=== PATIENT | female | born 1965 | race African-American/Black ===

== ENCOUNTER 2017-08-04 09:25 | Emergency (ER) | payer OTHER ==
[~2017-08-04] VITALS: Ht 160 cm; Wt 90.8 kg
[~2017-08-04 09:25] MED LIST: CITA40TA5 PO; CRESTOR20 MG PO; INDO25CA PO; TRAM50TA PO; TRAZ50TA15 PO; VALA500T PO; VALS80TA3 PO
[2017-08-04] MEDS ORDERED: ONDANSETRON ODT 4 MG TAB.RAPDIS PO ONE (10:00)
[2017-08-04] MEDS ORDERED: IV NORMAL SALINE 1,000ML 1,000 ML IV ONE (10:00)
[2017-08-04] MEDS ORDERED: MORPHINE SULFATE 4 MG/ML DISP.SYRIN. ONE (10:23)
[2017-08-04 10:26] LABS: BASO # 0.1 x10^3/uL (0.0-0.2); BASO % 1 % (0-3); EOS % 0 % (0-3); HEMATOCRIT 45.3 % (36.0-47.0); HEMOGLOBIN 15.4 g/dL (12.0-15.5); LYMPH # 1.1 x10^3/uL (1.0-4.8); LYMPH % 12 % (24-48); MEAN CORPUSCULAR HEMOGLOBIN 31 pg (25-35); MEAN CORPUSCULAR HGB CONC 34 g/dL (31-37); MEAN CORPUSCULAR VOLUME 91 fL (79-100); MONO # 0.8 x10^3/uL (0.0-1.1); MONO % 8 % (0-9); NEUT # 7.4 x10^3uL (1.8-7.7); NEUT % 79 % (31-73); PLATELET COUNT 220 x10^3/uL (140-400); RED BLOOD COUNT 5.01 x10^6/uL (3.50-5.40); RED CELL DISTRIBUTION WIDTH 12.6 % (11.5-14.5); WHITE BLOOD COUNT 9.3 x10^3/uL (4.0-11.0)
[2017-08-04] MEDS ORDERED: MORPHINE SULFATE 4 MG/ML DISP.SYRIN. IV ONE (10:45)
[2017-08-04 11:14] LABS: ALBUMIN 3.5 g/dL (3.4-5.0); ALBUMIN/GLOBULIN RATIO 0.8 (1.0-1.7); CALCIUM 8.6 mg/dL (8.5-10.1); GFR 69.9; MAGNESIUM 1.8 mg/dL (1.8-2.4); POTASSIUM 3.2 mmol/L (3.5-5.1); TOTAL BILIRUBIN 0.6 mg/dL (0.2-1.0); TOTAL PROTEIN 7.7 g/dL (6.4-8.2)
--- NOTE | 2017-08-04 12:45 | PHYS DOC ---
Past History Past Medical History: Depression, Hypertension, Migraines, TIA, Other Past Surgical History: , Other Alcohol Use: None Drug Use: None Adult General Chief Complaint Chief Complaint: ABDOMINAL PAIN HPI HPI Patient is a 52 year old F who presents with bilateral lower abdominal pain and left flank pain that started this morning. She describes her pain as achy and constant. She denies intermittent fluctuation. She has no known exacerbating factors. She does describe associated nausea without vomiting. She has had normal bowel movements and does not feel that she is constipated. She has no other associated symptoms this time. She has no other exacerbating or alleviating factors. Review of Systems Review of Systems Constitutional: Denies fever or chills [] Eyes: Denies change in visual acuity, redness, or eye pain [] HENT: Denies nasal congestion or sore throat [] Respiratory: Denies cough or shortness of breath [] Cardiovascular: No additional information not addressed in HPI [] GI: Negative except history of present illness : Denies dysuria or hematuria [] Musculoskeletal: Denies back pain or joint pain [] Integument: Denies rash or skin lesions [] Neurologic: Denies headache, focal weakness or sensory changes [] Endocrine: Denies polyuria or polydipsia [] All other systems were reviewed and found to be within normal limits, except as documented in this note. Family History Family History No pertinent family medical history reported Current Medications Current Medications Current Medications Medications (Trade) Dose Ordered Sig/[facility] Start Time Stop Time Status Last Admin Dose Admin Morphine Sulfate (Morphine 4mg Syringe) 4 mg STK-MED ONCE 08/04/17 10:23 08/04/17 10:24 DC Ondansetron HCl (Zofran Odt) 4 mg 1X ONCE 08/04/17 10:00 08/04/17 10:25 DC 08/04/17 10:20 4 MG Sodium Chloride 1,000 ml @ 1,000 mls/hr 1X ONCE 08/04/17 10:00 08/04/17 10:59 DC 08/04/17 10:21 1,000 MLS/HR Allergies Allergies Allergies Coded Allergies Type Severity Reaction Last Updated Verified No Known Drug Allergies 12/13/14 No Physical Exam Physical Exam Constitutional: Well developed, well nourished, no acute distress, non-toxic appearance. [] HENT: Normocephalic, atraumatic Eyes: EOMI, conjunctiva normal, no discharge. [] Neck: Normal range of motion, no tenderness, supple, no stridor. [] Cardiovascular:Heart rate regular rhythm, Lungs & Thorax: Bilateral breath sounds clear to auscultation [] Abdomen: Bowel sounds normal, soft, no masses, no pulsatile masses. [] Mild tenderness in the lower abdomen Skin: Warm, dry, no erythema, no rash. [] Back: Mild tenderness in the left flank Extremities: No tenderness, no cyanosis, no clubbing, ROM intact, no edema. [] Neurologic: Alert and oriented X 3, normal motor function, normal sensory function, no focal deficits noted. [] Psychologic: Affect normal, judgement normal, mood normal. [] Current Patient Data Vital Signs Vital Signs Date Time Temp Pulse Resp B/P (MAP) Pulse Ox O2 Delivery O2 Flow Rate FiO2 08/04/17 10:27 18 100 Room Air Lab Results Laboratory Tests Test 08/04/17 10:15 08/04/17 10:50 08/04/17 12:04 08/04/17 12:50 White Blood Count 9.3 x10^3/uL (4.0-11.0) Red Blood Count 5.01 x10^6/uL (3.50-5.40) Hemoglobin 15.4 g/dL (12.0-15.5) Hematocrit 45.3 % (36.0-47.0) Mean Corpuscular Volume 91 fL (79-100) Mean Corpuscular Hemoglobin 31 pg (25-35) Mean Corpuscular Hemoglobin Concent 34 g/dL (31-37) Red Cell Distribution Width 12.6 % (11.5-14.5) Platelet Count 220 x10^3/uL (140-400) Neutrophils (%) (Auto) 79 % (31-73) Lymphocytes (%) (Auto) 12 % (24-48) Monocytes (%) (Auto) 8 % (0-9) Eosinophils (%) (Auto) 0 % (0-3) Basophils (%) (Auto) 1 % (0-3) Neutrophils # (Auto) 7.4 x10^3uL (1.8-7.7) Lymphocytes # (Auto) 1.1 x10^3/uL (1.0-4.8) Monocytes # (Auto) 0.8 x10^3/uL (0.0-1.1) Eosinophils # (Auto) 0.0 x10^3/uL (0.0-0.7) Basophils # (Auto) 0.1 x10^3/uL (0.0-0.2) Sodium Level 140 mmol/L (136-145) Potassium Level 3.2 mmol/L (3.5-5.1) Chloride Level 104 mmol/L (98-107) Carbon Dioxide Level 27 mmol/L (21-32) Anion Gap 9 (6-14) Blood Urea Nitrogen 18 mg/dL (7-20) Creatinine 1.0 mg/dL (0.6-1.0) Estimated GFR (Cockcroft-Gault) 69.9 BUN/Creatinine Ratio 18 (6-20) Glucose Level 114 mg/dL (70-99) Calcium Level 8.6 mg/dL (8.5-10.1) Magnesium Level 1.8 mg/dL (1.8-2.4) Total Bilirubin 0.6 mg/dL (0.2-1.0) Aspartate Amino Transf (AST/SGOT) 14 U/L (15-37) Alanine Aminotransferase (ALT/SGPT) 18 U/L (14-59) Alkaline Phosphatase 93 U/L (46-116) Total Protein 7.7 g/dL (6.4-8.2) Albumin 3.5 g/dL (3.4-5.0) Albumin/Globulin Ratio 0.8 (1.0-1.7) Lipase 90 U/L (73-393) Bedside Urine HCG, Qualitative hcg negative (Negative) Urine Collection Type Unknown Urine Color Yellow Urine Clarity Hazy Urine pH 7.5 Urine Specific Clarinda 1.020 Urine Protein Neg (NEG-TRACE) Urine Glucose (UA) Neg mg/dL (NEG) Urine Ketones (Stick) Neg mg/dL (NEG) Urine Blood Large (NEG) Urine Nitrite Neg (NEG) Urine Bilirubin Neg (NEG) Urine Urobilinogen Dipstick 1 mg/dL (0.2 mg/dL) Urine Leukocyte Esterase Neg (NEG) Urine RBC 11-20 /HPF (0-2) Urine WBC Occ /HPF (0-4) Urine Squamous Epithelial Cells Mod /LPF Urine Bacteria Mod /HPF (0-FEW) Urine Mucus Slight /LPF Urine Test Negative (NEG) Laboratory Tests Test 08/04/17 10:15 08/04/17 10:50 White Blood Count 9.3 x10^3/uL (4.0-11.0) Red Blood Count 5.01 x10^6/uL (3.50-5.40) Hemoglobin 15.4 g/dL (12.0-15.5) Hematocrit 45.3 % (36.0-47.0) Mean Corpuscular Volume 91 fL (79-100) Mean Corpuscular Hemoglobin 31 pg (25-35) Mean Corpuscular Hemoglobin Concent 34 g/dL (31-37) Red Cell Distribution Width 12.6 % (11.5-14.5) Platelet Count 220 x10^3/uL (140-400) Neutrophils (%) (Auto) 79 % (31-73) H Lymphocytes (%) (Auto) 12 % (24-48) L Monocytes (%) (Auto) 8 % (0-9) Eosinophils (%) (Auto) 0 % (0-3) Basophils (%) (Auto) 1 % (0-3) Neutrophils # (Auto) 7.4 x10^3uL (1.8-7.7) Lymphocytes # (Auto) 1.1 x10^3/uL (1.0-4.8) Monocytes # (Auto) 0.8 x10^3/uL (0.0-1.1) Eosinophils # (Auto) 0.0 x10^3/uL (0.0-0.7) Basophils # (Auto) 0.1 x10^3/uL (0.0-0.2) Sodium Level 140 mmol/L (136-145) Potassium Level 3.2 mmol/L (3.5-5.1) L Chloride Level 104 mmol/L (98-107) Carbon Dioxide Level 27 mmol/L (21-32) Anion Gap 9 (6-14) Blood Urea Nitrogen 18 mg/dL (7-20) Creatinine 1.0 mg/dL (0.6-1.0) Estimated GFR (Cockcroft-Gault) 69.9 BUN/Creatinine Ratio 18 (6-20) Glucose Level 114 mg/dL (70-99) H Calcium Level 8.6 mg/dL (8.5-10.1) Magnesium Level 1.8 mg/dL (1.8-2.4) Total Bilirubin 0.6 mg/dL (0.2-1.0) Aspartate Amino Transferase (AST) 14 U/L (15-37) L Alanine Aminotransferase (ALT) 18 U/L (14-59) Alkaline Phosphatase 93 U/L (46-116) Total Protein 7.7 g/dL (6.4-8.2) Albumin 3.5 g/dL (3.4-5.0) Albumin/Globulin Ratio 0.8 (1.0-1.7) L Lipase 90 U/L (73-393) EKG EKG [] Radiology/Procedures Radiology/Procedures Imaging to look for a life-threatening apparently disabling condition was declined. Emma instead opted for watchful management after risks and benefits were reviewed. Course & Med Decision Making Course & Med Decision Making Pertinent Labs and Imaging studies reviewed. (See chart for details) Emma's course in the emergency room was delayed as she was unable to give a urine sample for some time. Dragon Disclaimer Dragon Disclaimer This electronic medical record was generated, in whole or in part, using a voice recognition dictation system. Departure Departure: Impression: Primary Impression: Gastroenteritis Disposition: 01 HOME, SELF-CARE Condition: STABLE Referrals: JAY العلي DO, MPH (PCP) Patient Instructions: Viral Gastroenteritis Additional Instructions: Emma was seen in the emergency department for abdominal pain and nausea. No emergency medical condition was found on history or physical exam. She did have normal labs. Her symptoms are most consistent with a viral infection. She was strongly encouraged to return to the emergency room if she develops new or worsening symptoms. She was also advised follow-up with her primary care doctor as needed for further management. Scripts Ondansetron (ZOFRAN ODT) 4 Mg Tab.rapdis 1 TAB SL Q8HRS, #15 TAB Prov: SHAWN GALLEGOS MD 08/04/17 SHAWN GALLEGOS MD Aug 04, 2017 12:45
[2017-08-04] MEDS: POTASSIUM CHLORIDE 20 MEQ TABLET.ER. PO ONE ×2 (13:00→13:56)
[2017-08-04 13:20] LABS: BACTERIA,URINE MOD /HPF (0-FEW); BILIRUBIN,URINE NEG (NEG); CLARITY,URINE HAZY; COLOR,URINE YELLOW; GLUCOSE,URINE NEG (NEG); NITRITE,URINE NEG (NEG); SQUAMOUS EPITHELIAL CELL,UR MOD /LPF; UROBILINOGEN,URINE 1 mg/dL (0.2 mg/dL); WBC,URINE OCC /HPF (0-4)
[2017-08-04 13:27] LABS: U PREG PATIENT NEGATIVE (NEG)
[2017-08-04] MEDS ORDERED: ONDA4TAB10 SL (13:49)
[2017-08-04 14:02] VITALS: BP 148/98
== END 2017-08-04 14:02 | disposition home or self-care (01) ==
LOC: ER 09:25
DX: K52.9 Noninfective gastroenteritis and colitis, unspecified (principal); F32.9 Major depressive disorder, single episode, unspecified; I10 Essential (primary) hypertension; G43.909 Migraine, unspecified, not intractable, without status migrainosus; Z86.73 Personal history of transient ischemic attack (TIA), and cerebral infarction without residual deficits
CPT/HCPCS: 36415; 80053; 81001; 81025; 83690; 83735; 85025; 87086; 96361; 96374; 99284; J2270; Q0162; J7030

== ENCOUNTER 2017-09-14 12:51 | Emergency (ER) | payer OTHER ==
[~2017-09-14] VITALS: Ht 160 cm; Wt 89.6 kg
[~2017-09-14 12:51] MED LIST changes: +ONDA4TAB10 SL
--- NOTE | 2017-09-14 13:18 | PHYS DOC ---
Past History Past Medical History: Depression, High Cholesterol, Hypertension, Migraines, TIA, Other Past Surgical History: , Other Alcohol Use: Rarely Drug Use: None Adult General Chief Complaint Chief Complaint: FLANK PAIN [facility] HPI 52-year-old female who was recently diagnosed with urinary tract infection presents with a fairly acute onset of left-sided flank pain that radiates into her groin. She's never had a kidney stone before. She states the pain is severe. There is nothing that she is then to make it any better or worse today. She denies any fever chills or sweats. She has not had any nausea. She denies any gross hematuria.[] Review of Systems Review of Systems Constitutional: Denies fever or chills [] Eyes: Denies change in visual acuity, redness, or eye pain [] HENT: Denies nasal congestion or sore throat [] Respiratory: Denies cough or shortness of breath [] Cardiovascular: No additional information not addressed in HPI [] GI: Left flank pain[] : Recent urinary tract infection[] Musculoskeletal: Denies back pain or joint pain [] Integument: Denies rash or skin lesions [] Neurologic: Denies headache, focal weakness or sensory changes [] Endocrine: Denies polyuria or polydipsia [] All other systems were reviewed and found to be within normal limits, except as documented in this note. Allergies Allergies Allergies Coded Allergies Type Severity Reaction Last Updated Verified No Known Drug Allergies 12/13/14 No Physical Exam Physical Exam Constitutional: Well developed, well nourished, moderate distress, non-toxic appearance. [] HENT: Normocephalic, atraumatic, bilateral external ears normal, oropharynx moist, no oral exudates, nose normal. [] Eyes: PERRLA, EOMI, conjunctiva normal, no discharge. [] Neck: Normal range of motion, no tenderness, supple, no stridor. [] Cardiovascular:Heart rate regular rhythm, no murmur [] Lungs & Thorax: Bilateral breath sounds clear to auscultation [] Abdomen: Bowel sounds normal, soft, no tenderness, no masses, no pulsatile masses. [] Skin: Warm, dry, no erythema, no rash. [] Back: No tenderness, no CVA tenderness. [] Extremities: No tenderness, no cyanosis, no clubbing, ROM intact, no edema. [] Neurologic: Alert and oriented X 3, normal motor function, normal sensory function, no focal deficits noted. [] Psychologic: Affect normal, judgement normal, mood normal. [] Current Patient Data Vital Signs Vital Signs Date Time Temp Pulse Resp B/P (MAP) Pulse Ox O2 Delivery O2 Flow Rate FiO2 09/14/17 13:02 98.1 104 18 98 Room Air EKG EKG [] Radiology/Procedures Radiology/Procedures [] Impressions: PATIENT: CHRISTY GANDHI ACCOUNT: [id number] : 1965 LOCATION: ER AGE: 52 SEX: F EXAM STATUS: PRE ER ORD. PHYSICIAN: JANA BILLINGS DO REASON: left flank pain PROCEDURE: CT ABDOMEN PELVIS WO CONTRAST CT of the abdomen and pelvis without contrast, 09/14/2017: HISTORY: Left flank pain Noncontrast scans were obtained with multiplanar reconstructions produced. No intrarenal calculi are identified. The left renal pelvis and left ureter are mildly dilated. There is minimal left perinephric edema. The distal left ureter near the ureterovesical junction is not clearly defined. There is a 4 mm radiopacity along the posterior wall of the collapsed urinary bladder just left of midline most likely representing an obstructing calculus at the level of the left ureterovesical junction. Additional small bilateral lower pelvic calcifications are probably phleboliths. The right renal collecting system and ureter are unremarkable. A tiny subcentimeter low-density lesion in the right lobe of the liver is probably a cyst. The gallbladder is unremarkable. No pancreatic abnormality is seen. The spleen is within normal limits in size. There is mild aortoiliac calcific plaquing without evidence of aneurysm. No abdominal or pelvic adenopathy is seen. The uterus is at the upper limits of normal in size. Several small cysts are noted in the left ovary. The bowel loops are not dilated. No free fluid or free air is evident in the abdomen or pelvis. IMPRESSION: 4 mm obstructing distal left ureteral calculus at the ureterovesical junction. Course & Med Decision Making Course & Med Decision Making Pertinent Labs and Imaging studies reviewed. (See chart for details) [ED course: Evaluation reveals a 52-year-old female with a 4 mm obstructing kidney stone on the left. This is likely the cause of her pain today. I have encouraged her to continue on her antibiotics. I'll provide her with pain medicine and nausea medicine as well as Flomax to take at home. She'll need to follow with the urologist. At this time. She is pain-free.] Dontae Disclaimer Dontae Disclaimer This electronic medical record was generated, in whole or in part, using a voice recognition dictation system. Departure Departure: Impression: Primary Impression: Ureteral calculus, left Disposition: HOME, SELF-CARE Condition: IMPROVED Referrals: GLENDA PEÑA MD (PCP) Patient Instructions: Diet for Kidney Stones, Kidney Stones Additional Instructions: Follow with her primary care physician in the next 2-3 days she will likely need a referral to a urologist. Return to the emergency department immediately with any new or concerning symptoms Scripts Ondansetron (ONDANSETRON ODT) 4 Mg Tab.rapdis 1 TAB PO PRN Q6-8HRS for NAUSEA, #16 TAB Prov: JANA BILLINGS DO 09/14/17 Hydrocodone Bit/Acetaminophen (NORCO 5-325 TABLET) 1 Each Tablet 1-2 TAB PO Q4-6HRS for PAIN, #20 TAB Prov: JANA BILLINGS DO 09/14/17 Tamsulosin Hcl (FLOMAX) 0.4 Mg Cap.er.24h 1 CAP PO DAILY, #30 CAP 11 Refills Prov: JANA BILLINGS DO 09/14/17 JANA BILLINGS DO Sep 14, 2017 13:18
[2017-09-14] MEDS ORDERED: KETOROLAC 30 MG/ML VIAL. IV ONE (13:30)
[2017-09-14] MEDS ORDERED: IV NORMAL SALINE 1,000ML 1,000 ML IV ONE ×2 (13:30→14:30)
[2017-09-14 14:12] LABS: BILIRUBIN,URINE NEG (NEG); CLARITY,URINE CLOUDY; COLOR,URINE ORANGE
--- NOTE | 2017-09-14 14:13 | RAD ---
CT of the abdomen and pelvis without contrast, 09/14/2017: HISTORY: Left flank pain Noncontrast scans were obtained with multiplanar reconstructions produced. No intrarenal calculi are identified. The left renal pelvis and left ureter are mildly dilated. There is minimal left perinephric edema. The distal left ureter near the ureterovesical junction is not clearly defined. There is a 4 mm radiopacity along the posterior wall of the collapsed urinary bladder just left of midline most likely representing an obstructing calculus at the level of the left ureterovesical junction. Additional small bilateral lower pelvic calcifications are probably phleboliths. The right renal collecting system and ureter are unremarkable. A tiny subcentimeter low-density lesion in the right lobe of the liver is probably a cyst. The gallbladder is unremarkable. No pancreatic abnormality is seen. The spleen is within normal limits in size. There is mild aortoiliac calcific plaquing without evidence of aneurysm. No abdominal or pelvic adenopathy is seen. The uterus is at the upper limits of normal in size. Several small cysts are noted in the left ovary. The bowel loops are not dilated. No free fluid or free air is evident in the abdomen or pelvis. IMPRESSION: 4 mm obstructing distal left ureteral calculus at the ureterovesical junction. Electronically signed by: Samir Thorpe MD (09/14/2017 2:09 PM) [facility]
[2017-09-14 14:15] LABS: BACTERIA,URINE MOD /HPF (0-FEW)
[2017-09-14 14:16] LABS: SQUAMOUS EPITHELIAL CELL,UR MANY /LPF
[2017-09-14 14:17] LABS: ALBUMIN 3.6 g/dL (3.4-5.0); ALBUMIN/GLOBULIN RATIO 0.8 (1.0-1.7); CALCIUM 9.1 mg/dL (8.5-10.1); CREATININE 1.1 mg/dL (0.6-1.0); GFR 62.6; POTASSIUM 3.2 mmol/L (3.5-5.1); TOTAL BILIRUBIN 0.9 mg/dL (0.2-1.0); TOTAL PROTEIN 8.2 g/dL (6.4-8.2)
[2017-09-14] MEDS ORDERED: ONDANSETRON PF 4 MG/2 ML VIAL. IV ONE (14:30)
[2017-09-14] MEDS ORDERED: TAMSULOSIN 0.4 MG CAP.ER.24H. PO ONE (14:30)
[2017-09-14] MEDS ORDERED: TAMS0.4C97 PO (14:37)
[2017-09-14] MEDS ORDERED: HYDR-971 PO (14:37)
[2017-09-14] MEDS ORDERED: ONDA4TAB12 PO (14:37)
[2017-09-14 15:32] VITALS: BP 156/90
== END 2017-09-14 16:03 | disposition home or self-care (01) ==
LOC: ER 12:51
DX: N20.1 Calculus of ureter (principal); E78.00 Pure hypercholesterolemia, unspecified; G43.909 Migraine, unspecified, not intractable, without status migrainosus; I10 Essential (primary) hypertension; Z87.440 Personal history of urinary (tract) infections; Z86.73 Personal history of transient ischemic attack (TIA), and cerebral infarction without residual deficits
CPT/HCPCS: 36415; 74176; 80053; 81001; 87086; 96374; 96375; 99285; J1885; J2405; J3010; J7030

== ENCOUNTER → 2017-11-12 | Outpatient (CLI) | payer OTHER ==
[~2017-11-12] MED LIST changes: +HYDR-971 PO; -INDO25CA PO; +INDO25CA5 PO; +ONDA4TAB12 PO; +TAMS0.4C97 PO; +TRAZ-85 PO; -TRAZ50TA15 PO
--- NOTE | 2017-11-13 09:04 | RAD ---
Right periscapular region ultrasound, 2017: HISTORY: Lump The area of clinical concern along the posterior aspect of the right scapula was carefully scanned. The lump appears to correspond to an elongated hypoechoic subcutaneous process measuring 5.9 x 5.8 x 1.1 cm. Its echo pattern is similar to that of the subcutaneous fat. The features are most compatible with a lipoma. No other abnormality is seen. IMPRESSION: Probable subcutaneous lipoma as described above. Clinical surveillance is suggested. If this process enlarges, MR scanning may be useful for further evaluation. Electronically signed by: Samir Thorpe MD (11/13/2017 9:00 AM) [facility]
== END | disposition home or self-care (01) ==
LOC: US 13:58
PROVIDERS: ATTEND Physician Assistant
DX: D17.39 Benign lipomatous neoplasm of skin and subcutaneous tissue of other sites (principal); I10 Essential (primary) hypertension; E78.00 Pure hypercholesterolemia, unspecified; G43.909 Migraine, unspecified, not intractable, without status migrainosus; Z86.73 Personal history of transient ischemic attack (TIA), and cerebral infarction without residual deficits; Z87.440 Personal history of urinary (tract) infections
CPT/HCPCS: 76881

== ENCOUNTER → 2017-12-23 | Day surgery (SDC) | payer OTHER ==
[~2017-12-23] MED LIST changes: +ASPI325T8 PO; +BACL10TA PO; +BUPIVAC MPF-EPI 0.5%-1:200000 30 ML VIAL. ONE; +BUPR-192 PO; +CELE100C PO; +CHOL500016 PO; +FLUT16SP21 NS; +HYDR12.58 PO; +NAPR-514 PO; +NORT10CA PO; +OLOP2.5D EACHEYE; +POTA20TA4 PO; +SUMA100T3 PO; +VALS1TAB8 PO; +VITA1TAB19 PO
[2017-12-23 13:44] VITALS: BP 142/71
--- NOTE | 2017-12-23 13:44 | PDOC4 ---
Operative Report DATE 12/23/2017 Preop Diagnosis Right upper back mass Post-op Diagnosis Same Operation Performed Excision of right upper back mass Surgeon Bandar ANESTHESIA PROPOSED: LOCAL Blood Loss 10 mL IV Fluid None Specimen Right upper back mass Complications None Dictation: Patient is a 52-year-old female who has a subcutaneous mass in the right upper back likely lipoma procedure of excision was explained to the patient detail was benefits were also discussed including bleeding infection. The patient seemed understanding gave both verbal and written consent had procedure performed. Patient was taken to the minor was room placed in the right lateral decubitus positioning her upper back was prepped and draped usual sterile fashion using ChloraPrep half percent Marcaine with epinephrine was used to inject the skin over the mass once this was anesthetized with 10 blade scalpel was used to make an incision this carried down through the subcutaneous tissues electrocautery right hemostasis. Mass was sharply excised with Metzenbaum scissors and sent for pathology wound was then closed in 2 layers a deep layer running 3-0 Vicryl and skin was reapproximated 4 septic or Monocryl Mastisol Steri-Strips 4 x 4's Medipore tape were applied as a dressing. She tolerated procedure well was discharged home in stable condition all sponge instrument needle counts listed as correct SAVANNA GERMAN MD Dec 23, 2017 13:44
--- NOTE | 2017-12-29 10:49 | PATHOLOGY ---
[facility] Accession Number: [id number] . 01 Material submitted: . RIGHT UPPER BACK MASS . 01 Clinical history: . Right upper back mass . 02 Diagnosis: Segment of fibroadipose tissue, right upper back mass: - Lipoma. MBR/12/25/2017 . 02 Comment: There is no evidence of malignancy. . 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 02 Electronically signed: . Presley Zamudio MD, Pathologist NPI- [id number] . 01 Gross description: . The specimen is received in formalin, labeled "Emma Blancas, right upper back mass", is a roughly oval yellow lobulated soft tissue partially covered by a thin meadows-white membrane weighing 38 g and measuring 8.0 x 4.5 x 2.3 cm. The specimen is serially sectioned to show a laws-yellow homogeneous cut surface with no discrete hemorrhage or necrosis. Roofer Assistant tissue is submitted in A1-A3. ([facility]; 12/24/2017) SHS/SHS . 02 Pathologist provided ICD-10: D17.79 . 02 CPT . 565161 Specimen Comment: A courtesy copy of this report has been sent to Specimen Comment: [phone], . Specimen Comment: Report sent to / DR HARRIS Specimen Comment: A duplicate report has been generated due to demographic updates. Performed at: [facility] [address] [facility] [address], [place] [id number] MD Jim Tovar MD Phone: [phone] Performed at: 02 [facility] [address] [place], [place] [id number] MD Presley Zamudio MD Phone: [phone]
== END | disposition home or self-care (01) ==
LOC: SURG 12:35
PROVIDERS: ATTEND Surgery
DX: D17.1 Benign lipomatous neoplasm of skin and subcutaneous tissue of trunk (principal); G43.909 Migraine, unspecified, not intractable, without status migrainosus; I10 Essential (primary) hypertension; E78.00 Pure hypercholesterolemia, unspecified; Z79.82 Long term (current) use of aspirin; Z79.899 Other long term (current) drug therapy; Z98.890 Other specified postprocedural states
CPT/HCPCS: 21931; 88304; J3490; 11406

== ENCOUNTER 2018-07-03 17:17 | Emergency (ER) | payer OTHER ==
[~2018-07-03] VITALS: Ht 160 cm; Wt 94.5 kg
[~2018-07-03 17:17] MED LIST changes: -BUPIVAC MPF-EPI 0.5%-1:200000 30 ML VIAL. ONE; +HYDR-3165 PO; -HYDR-971 PO; +TRAZ-120 PO; -TRAZ-85 PO
--- NOTE | 2018-07-03 17:37 | ED.ADGEN ---
Past History Past Medical History: Depression, High Cholesterol, Hypertension, Migraines, TIA, Other Past Surgical History: , Other Alcohol Use: Rarely Drug Use: None Adult General Chief Complaint Chief Complaint ".. My blood pressure is up today.. the change me to Capoten.. and it s been high all day..." HPI HPI Patient is a 53 year old female who presents with above hx and complaints hypertension. Patient changed to Capoten 25 mg twice a day. Does have history of chronic hypertension elevated cholesterol, depression, low vitamin D levels, migraines, sleep apnea, and renal stones, and UTIs. Patient denies any ill contacts. Patient denies any travel. No history of trauma. No history immunosuppression. Pt. follows with Dr. Paz. No complaints of neuro changes or other sequela currently. Review of Systems Review of Systems Constitutional: Denies fever or chills [] Eyes: Denies change in visual acuity, redness, or eye pain [] HENT: Denies nasal congestion or sore throat [] Respiratory: Denies cough or shortness of breath [] Cardiovascular: No additional information not addressed in HPI [] GI: Denies abdominal pain, nausea, vomiting, bloody stools or diarrhea [] : Denies dysuria or hematuria [] Musculoskeletal: Denies back pain or joint pain [] Integument: Denies rash or skin lesions [] Neurologic: Denies headache, focal weakness or sensory changes [] Endocrine: Denies polyuria or polydipsia [] All other systems were reviewed and found to be within normal limits, except as documented in this note. Family History Family History Noncontributory to presentation Current Medications Current Medications Current Medications Medications (Trade) Dose Ordered Sig/Ash Start Time Stop Time Status Last Admin Dose Admin Acetaminophen (Tylenol) 1,000 mg 1X ONCE 07/03/18 18:15 07/03/18 18:20 DC 07/03/18 18:14 1,000 MG Clonidine HCl (Catapres Tts-2) 1 patch 1X ONCE 07/03/18 18:15 07/03/18 18:16 DC 07/03/18 18:15 1 PATCH Clonidine HCl (Catapres) 0.2 mg 1X ONCE 07/03/18 18:15 07/03/18 18:16 DC 07/03/18 18:14 0.2 MG Lactated Ringer's 1,000 ml @ 100 mls/hr Q10H 07/03/18 18:03 07/03/18 21:44 DC 07/03/18 21:16 100 MLS/HR Allergies Allergies Allergies Coded Allergies Type Severity Reaction Last Updated Verified No Known Drug Allergies 12/13/14 No Physical Exam Physical Exam Constitutional: no acute distress, non-toxic appearance. [] HENT: Normocephalic, atraumatic, bilateral external ears normal, oropharynx moist, no oral exudates, nose normal. [] Eyes: PERRLA, EOMI, conjunctiva normal, no discharge. [] Neck: Normal range of motion, no tenderness, supple, no stridor. [] Cardiovascular:Heart rate regular rhythm, no murmur [, PMI to Lt. ] Lungs & Thorax: Bilateral breath sounds equal apex on auscultation [] Abdomen: Bowel sounds normal, soft, no tenderness, no masses, no pulsatile masses. Moderate obesity. Old surgery scar. Skin: Warm, dry, no erythema, no rash. [] Back: No tenderness, no CVA tenderness. [] Extremities: No tenderness, no cyanosis, no clubbing, ROM intact, no edema. [] DTRs +2 patella and brachial Neurologic: Alert and oriented X 3, normal motor function, normal sensory function, no focal deficits noted. []Patient ambulatory without problems Psychologic: Affect normal, judgement normal, mood normal. [] Current Patient Data Vital Signs Vital Signs Date Time Temp Pulse Resp B/P (MAP) Pulse Ox O2 Delivery O2 Flow Rate FiO2 07/03/18 21:05 83 20 144/73 (96) 99 Room Air 07/03/18 17:20 98.5 Lab Results Laboratory Tests Test 07/03/18 19:25 07/03/18 20:57 White Blood Count 9.5 x10^3/uL (4.0-11.0) Red Blood Count 4.88 x10^6/uL (3.50-5.40) Hemoglobin 14.8 g/dL (12.0-15.5) Hematocrit 44.2 % (36.0-47.0) Mean Corpuscular Volume 91 fL (79-100) Mean Corpuscular Hemoglobin 30 pg (25-35) Mean Corpuscular Hemoglobin Concent 33 g/dL (31-37) Red Cell Distribution Width 13.7 % (11.5-14.5) Platelet Count 218 x10^3/uL (140-400) Neutrophils (%) (Auto) 69 % (31-73) Lymphocytes (%) (Auto) 17 % (24-48) L Monocytes (%) (Auto) 12 % (0-9) H Eosinophils (%) (Auto) 1 % (0-3) Basophils (%) (Auto) 1 % (0-3) Neutrophils # (Auto) 6.6 x10^3uL (1.8-7.7) Lymphocytes # (Auto) 1.6 x10^3/uL (1.0-4.8) Monocytes # (Auto) 1.1 x10^3/uL (0.0-1.1) Eosinophils # (Auto) 0.1 x10^3/uL (0.0-0.7) Basophils # (Auto) 0.1 x10^3/uL (0.0-0.2) Sodium Level 143 mmol/L (136-145) Potassium Level 3.5 mmol/L (3.5-5.1) Chloride Level 106 mmol/L (98-107) Carbon Dioxide Level 29 mmol/L (21-32) Anion Gap 8 (6-14) Blood Urea Nitrogen 15 mg/dL (7-20) Creatinine 0.9 mg/dL (0.6-1.0) Estimated GFR (Cockcroft-Gault) 78.7 Glucose Level 81 mg/dL (70-99) Calcium Level 9.1 mg/dL (8.5-10.1) Magnesium Level 2.0 mg/dL (1.8-2.4) Total Bilirubin 0.3 mg/dL (0.2-1.0) Direct Bilirubin 0.1 mg/dL (0.0-0.2) Aspartate Amino Transferase (AST) 20 U/L (15-37) Alanine Aminotransferase (ALT) 17 U/L (14-59) Alkaline Phosphatase 86 U/L (46-116) Creatine Kinase 416 U/L (26-192) H Troponin I Quantitative < 0.017 ng/mL (0-0.055) Total Protein 7.5 g/dL (6.4-8.2) Albumin 3.3 g/dL (3.4-5.0) L Urine Collection Type Unknown Urine Color Callie Urine Clarity Cloudy Urine pH 7.0 Urine Specific [place] 1.020 Urine Protein Neg (NEG-TRACE) Urine Glucose (UA) Neg mg/dL (NEG) Urine Ketones (Stick) Neg mg/dL (NEG) Urine Blood Neg (NEG) Urine Nitrite Neg (NEG) Urine Bilirubin Neg (NEG) Urine Urobilinogen Dipstick 2 mg/dL (0.2 mg/dL) Urine Leukocyte Esterase Neg (NEG) Urine RBC 0 /HPF (0-2) Urine WBC 0 /HPF (0-4) Urine Squamous Epithelial Cells Few /LPF Urine Bacteria 0 /HPF (0-FEW) EKG EKG My interpretation of EKG shows a sinus rhythm at 88. There is some nonspecific T -wave abnormalities in anterior leads, slightly prolonged QT interval at 400 ms her QTc interval is 488 seconds[] Radiology/Procedures Radiology/Procedures My interpretation of chest x-ray shows[] borderline cardiomegaly. No acute cardiopulmonary findings. No free air in the diaphragm. Course & Med Decision Making Course & Med Decision Making Pertinent Labs and Imaging studies reviewed. (See chart for details). Keep follow-up primary care. Review labs EKG and x-rays with her primary care. Follow -up urine results with primary care. Review the elevated CK finding on her lab here with primary care. Continue take hypertensive meds as previous directed. Wear clonidine patch until earlier follow-up with her primary care. If hypotensive remove patch. Return if any concerns. At discharge no complaints. [] Final Impression Final Impression 1. Accelerated Hypertension- resolved with clonidine / patch. 2. Hz. Recent HTN Med. Changes[] 3. Mild elevation in monocytes-12 4. Elevation of CK= 416 Dragon Disclaimer Dragon Disclaimer This electronic medical record was generated, in whole or in part, using a voice recognition dictation system. Dragon Disclaimer This chart was dictated in whole or in part using Voice Recognition software in a busy, high-work load, and often noisy Emergency Department environment. It may contain unintended and wholly unrecognized errors or omissions. Discharge Summary Visit Information Final Diagnosis Problems Medical Problems: (1) Hypertension Status: Acute Brief Hospital Course Allergies Allergies Coded Allergies Type Severity Reaction Last Updated Verified No Known Drug Allergies 12/13/14 No Vital Signs Vital Signs Date Time Temp Pulse Resp B/P (MAP) Pulse Ox O2 Delivery O2 Flow Rate FiO2 07/03/18 21:05 83 20 144/73 (96) 99 Room Air 07/03/18 17:20 98.5 Lab Results Laboratory Tests Test 07/03/18 19:25 07/03/18 20:57 White Blood Count 9.5 x10^3/uL (4.0-11.0) Red Blood Count 4.88 x10^6/uL (3.50-5.40) Hemoglobin 14.8 g/dL (12.0-15.5) Hematocrit 44.2 % (36.0-47.0) Mean Corpuscular Volume 91 fL (79-100) Mean Corpuscular Hemoglobin 30 pg (25-35) Mean Corpuscular Hemoglobin Concent 33 g/dL (31-37) Red Cell Distribution Width 13.7 % (11.5-14.5) Platelet Count 218 x10^3/uL (140-400) Neutrophils (%) (Auto) 69 % (31-73) Lymphocytes (%) (Auto) 17 % (24-48) Monocytes (%) (Auto) 12 % (0-9) Eosinophils (%) (Auto) 1 % (0-3) Basophils (%) (Auto) 1 % (0-3) Neutrophils # (Auto) 6.6 x10^3uL (1.8-7.7) Lymphocytes # (Auto) 1.6 x10^3/uL (1.0-4.8) Monocytes # (Auto) 1.1 x10^3/uL (0.0-1.1) Eosinophils # (Auto) 0.1 x10^3/uL (0.0-0.7) Basophils # (Auto) 0.1 x10^3/uL (0.0-0.2) Sodium Level 143 mmol/L (136-145) Potassium Level 3.5 mmol/L (3.5-5.1) Chloride Level 106 mmol/L (98-107) Carbon Dioxide Level 29 mmol/L (21-32) Anion Gap 8 (6-14) Blood Urea Nitrogen 15 mg/dL (7-20) Creatinine 0.9 mg/dL (0.6-1.0) Estimated GFR (Cockcroft-Gault) 78.7 Glucose Level 81 mg/dL (70-99) Calcium Level 9.1 mg/dL (8.5-10.1) Magnesium Level 2.0 mg/dL (1.8-2.4) Total Bilirubin 0.3 mg/dL (0.2-1.0) Direct Bilirubin 0.1 mg/dL (0.0-0.2) Aspartate Amino Transf (AST/SGOT) 20 U/L (15-37) Alanine Aminotransferase (ALT/SGPT) 17 U/L (14-59) Alkaline Phosphatase 86 U/L (46-116) Creatine Kinase 416 U/L (26-192) Troponin I Quantitative < 0.017 ng/mL (0-0.055) Total Protein 7.5 g/dL (6.4-8.2) Albumin 3.3 g/dL (3.4-5.0) Urine Collection Type Unknown Urine Color Callie Urine Clarity Cloudy Urine pH 7.0 Urine Specific [place] 1.020 Urine Protein Neg (NEG-TRACE) Urine Glucose (UA) Neg mg/dL (NEG) Urine Ketones (Stick) Neg mg/dL (NEG) Urine Blood Neg (NEG) Urine Nitrite Neg (NEG) Urine Bilirubin Neg (NEG) Urine Urobilinogen Dipstick 2 mg/dL (0.2 mg/dL) Urine Leukocyte Esterase Neg (NEG) Urine RBC 0 /HPF (0-2) Urine WBC 0 /HPF (0-4) Urine Squamous Epithelial Cells Few /LPF Urine Bacteria 0 /HPF (0-FEW) Brief Hospital Course Ms. Blancas is a 53 old female who presented with complaints of accelerated hypertension and changes in her BP meds. Pt. follow up with primary. Wear Clonidine patch until follow up. Discharge Information Condition at Discharge: Improved, Stable Disposition/Orders: D/C to Home Dischare Medications Current Medications Clonidine HCl (Catapres Tts-2) 1 patch 1X ONCE TD Last administered on at 18:15; Admin Dose 1 PATCH; Start 07/03/18 at 18:15; Stop 07/03/18 at 18:16 ; Status DC Clonidine HCl (Catapres) 0.2 mg 1X ONCE PO Last administered on 07/03/18at 18: 14; Admin Dose 0.2 MG; Start 07/03/18 at 18:15; Stop 07/03/18 at 18:16; Status DC Lactated Ringer's 1,000 ml @ 100 mls/hr Q10H IV Last administered on at 21:16; Admin Dose 100 MLS/HR; Start 07/03/18 at 18:03; Stop 07/03/18 at 21: 44; Status DC Acetaminophen (Tylenol) 1,000 mg 1X ONCE PO Last administered on 07/03/18at 18: 14; Admin Dose 1,000 MG; Start 07/03/18 at 18:15; Stop 07/03/18 at 18:20; Status DC Active Scripts Active Reported Trazodone Hcl 50 Mg Tablet 1 Tab PO QHS Tramadol Hcl (Tramadol HCl) 50 Mg Tablet 50 Mg PO PRN Q6HRS PRN Hydrochlorothiazide Tablet (Hydrochlorothiazide) 12.5 Mg Tablet 1 Tab PO DAILY Diovan Hct 160-12.5 Mg Tab (Valsartan/Hydrochlorothiazide) 1 Each Tablet 1 Tab PO DAILY Vitamin D3 (Cholecalciferol (Vitamin D3)) 5,000 Unit Tablet 1 Tab PO DAILY B Complex (Vitamin B Complex) 1 Each Tablet 1 Each PO Imitrex (Sumatriptan Succinate) 100 Mg Tablet 1 Tab PO UD Klor-Con M20 (Potassium Chloride) 20 Meq Tab.er.prt 1 Tab PO DAILY Pataday (Olopatadine Hcl) 2.5 Ml Drops 1 Drop EACHEYE DAILY Nortriptyline Hcl 10 Mg Capsule 1 Cap PO QHS Naproxen 500 Mg Tablet 1 Tab PO BID Fluticasone Propionate Nasal [place] (Fluticasone Propionate) 16 Gm [place].susp 1 Spr NS DAILY Celebrex (Celecoxib) 100 Mg Capsule 1 Cap PO DAILY Bupropion Xl (Bupropion Hcl) 150 Mg Tab.er.24h 1 Tab PO DAILYWBKFT Baclofen 10 Mg Tablet 1.5 Tab PO TID Aspirin 325 Mg Tablet 1 Tab PO DAILY Crestor (Rosuvastatin Calcium) 20 Mg Tablet 20 Mg PO HS Citalopram Hbr (Citalopram Hydrobromide) 40 Mg Tablet 40 Mg PO Diovan (Valsartan) 80 Mg Tablet 160 Mg PO SG BONILLA MD Jul 03, 2018 17:37
[2018-07-03] MEDS ORDERED: IV RINGERS SOLUTION,LACTATED 1,000 ML IV SCH (18:03)
--- NOTE | 2018-07-03 18:07 | EKG ---
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
[2018-07-03] MEDS ORDERED: ACETAMINOPHEN 500 MG TABLET PO ONE (18:15)
[2018-07-03] MEDS ORDERED: cloNIDine HCL 0.1 MG TABLET PO ONE (18:15)
[2018-07-03] MEDS ORDERED: cloNIDine TTS-2 1 PATCH PATCH TD ONE (18:15)
[2018-07-03 19:57] LABS: BASO # 0.1 x10^3/uL (0.0-0.2); BASO % 1 % (0-3); EOS # 0.1 x10^3/uL (0.0-0.7); EOS % 1 % (0-3); HEMATOCRIT 44.2 % (36.0-47.0); HEMOGLOBIN 14.8 g/dL (12.0-15.5); LYMPH # 1.6 x10^3/uL (1.0-4.8); LYMPH % 17 % (24-48); MEAN CORPUSCULAR HEMOGLOBIN 30 pg (25-35); MEAN CORPUSCULAR HGB CONC 33 g/dL (31-37); MEAN CORPUSCULAR VOLUME 91 fL (79-100); MONO # 1.1 x10^3/uL (0.0-1.1); MONO % 12 % (0-9); NEUT # 6.6 x10^3uL (1.8-7.7); NEUT % 69 % (31-73); PLATELET COUNT 218 x10^3/uL (140-400); RED BLOOD COUNT 4.88 x10^6/uL (3.50-5.40); RED CELL DISTRIBUTION WIDTH 13.7 % (11.5-14.5); WHITE BLOOD COUNT 9.5 x10^3/uL (4.0-11.0)
[2018-07-03 20:21] LABS: ALBUMIN 3.3 g/dL (3.4-5.0); CALCIUM 9.1 mg/dL (8.5-10.1); CREATININE 0.9 mg/dL (0.6-1.0); DIRECT BILIRUBIN 0.1 mg/dL (0.0-0.2); GFR 78.7; POTASSIUM 3.5 mmol/L (3.5-5.1); TOTAL BILIRUBIN 0.3 mg/dL (0.2-1.0); TOTAL PROTEIN 7.5 g/dL (6.4-8.2)
[2018-07-03 21:05] VITALS: BP 144/73
[2018-07-03 21:34] LABS: BACTERIA,URINE 0 /HPF (0-FEW); BILIRUBIN,URINE NEG (NEG); CLARITY,URINE CLOUDY; COLOR,URINE AMBER; GLUCOSE,URINE NEG (NEG); NITRITE,URINE NEG (NEG); RBC,URINE 0 /HPF (0-2); SQUAMOUS EPITHELIAL CELL,UR FEW /LPF; UROBILINOGEN,URINE 2 mg/dL (0.2 mg/dL); WBC,URINE 0 /HPF (0-4)
== END 2018-07-03 21:26 | disposition home or self-care (01) ==
LOC: ER 17:17
DX: I10 Essential (primary) hypertension (principal); D72.821 Monocytosis (symptomatic); R74.8 Abnormal levels of other serum enzymes; F32.9 Major depressive disorder, single episode, unspecified; E78.00 Pure hypercholesterolemia, unspecified; G43.909 Migraine, unspecified, not intractable, without status migrainosus; G47.30 Sleep apnea, unspecified; Z86.73 Personal history of transient ischemic attack (TIA), and cerebral infarction without residual deficits; Z87.442 Personal history of urinary calculi; Z87.440 Personal history of urinary (tract) infections
CPT/HCPCS: 36415; 80048; 80076; 81001; 82550; 83735; 84443; 84484; 85025; 93005; 99284; J7120

== ENCOUNTER 2019-05-14 17:57 | Inpatient (IN) | payer OTHER ==
[~2019-05-14] VITALS: Ht 160 cm; Wt 89.7 kg
[~2019-05-14 17:57] MED LIST changes: +INDO25CA21 PO; -INDO25CA5 PO; -VALA500T PO; +VALA500T9 PO
[2019-05-14] MEDS: IV RINGERS SOLUTION,LACTATED 1,000 ML IV SCH ×2 (18:02→19:15)
--- NOTE | 2019-05-14 18:02 | PHYS DOC ---
Past History Past Medical History: Depression, High Cholesterol, Hypertension, Migraines, TIA, Other Past Surgical History: , Other Alcohol Use: Rarely Drug Use: None Adult General Chief Complaint Chief Complaint: ".... HEENT chest pain all day ...here on the left side... It seems to be related to movement and deep breaths and I am very still have pain..." HPI HPI Patient is a 54 year old female retired who presents with above hx and complaints of chest pain. Chest pain has chest wall components, increased pain with movement or deep breaths or cough. Pain is on the left starts it back and comes around under left breast. She rates pain as 8 out of 10. Patient denies previous cardiac issues. Patient did have a stress test approximately a year ago and no significant findings at that time. Patient denies any recent history of injury or respiratory infection. Patient does have a history of hypertension TIAs ,high cholesterol, migraines and depression. There is family history of father having need of pacemaker age 50 he is alive. Mother has no cardiac issues. She has 3 brothers no significant health history and 2 sisters with no significant health history. Patient normally follows at [facility]. Review of Systems Review of Systems Constitutional: Denies fever or chills [] Eyes: Denies change in visual acuity, redness, or eye pain [] HENT: Denies nasal congestion or sore throat [] Respiratory: Denies cough or shortness of breath [] Cardiovascular: No additional information not addressed in HPI [] GI: Denies abdominal pain, nausea, vomiting, bloody stools or diarrhea [] : Denies dysuria or hematuria [] Musculoskeletal: Denies back pain or joint pain [] Integument: Denies rash or skin lesions [] Neurologic: Denies headache, focal weakness or sensory changes [] Endocrine: Denies polyuria or polydipsia [] All other systems were reviewed and found to be within normal limits, except as documented in this note. Family History Family History Father had cardiac issues age 50'S requiring a pacemaker placement Current Medications Current Medications See nursing for home medications Allergies Allergies Allergies Coded Allergies Type Severity Reaction Last Updated Verified No Known Drug Allergies 12/13/14 No Physical Exam Physical Exam Constitutional: Moderate acute distress, non-toxic appearance. [] HENT: Normocephalic, atraumatic, bilateral external ears normal, oropharynx moist, no oral exudates, nose normal. [] Eyes: PERRLA, EOMI, conjunctiva normal, no discharge. [] Neck: Normal range of motion, no tenderness, supple, no stridor. [] Cardiovascular:Heart rate regular rhythm, no murmur [] Lungs & Thorax: Bilateral breath sounds equal apex auscultation [. Patient h as]left chest wall pain on deep breaths and cough Abdomen: Bowel sounds normal, soft, no tenderness, no masses, no pulsatile masses. Old surgery scar. Skin: Warm, dry, no erythema, no rash. [] Old Back: No tenderness, no CVA tenderness. [] Extremities: No tenderness, no cyanosis, no clubbing, ROM intact, no edema. [No cording appreciated Neurologic: Alert and oriented X 3, normal motor function, normal sensory function, no focal deficits noted. [] Psychologic: Affect anxious, judgement normal, mood normal. [] EKG EKG My interpretation EKG shows a sinus rhythm at [address]pm[address] Some nonspecific specific ST changes. But no findings acute STEMI of contralateral changes. Does have some bimodal P-wave's.[] Radiology/Procedures Radiology/Procedures [][place] [address] IMAGING REPORT Signed PATIENT: CHRISTY GANDHI ACCOUNT: [id number] : 1965 LOCATION: ER AGE: 54 SEX: F EXAM STATUS: REG ER ORD. PHYSICIAN: SG BONILLA MD REASON: OMNI 350,100ML IV.LEFT CHEST WALL PAIN.NO INJURY OR SX PROCEDURE: CT ANGIOGRAPHY CHEST CTA scan of the Chest with Contrast (Pulmonary Embolism protocol) 05/14/2019 Clinical History: Left-sided chest pain. Technique: After the intravenous administration of 100 cc of Omnipaque 350, contiguous, 0.625 mm axial sections were obtained through the chest. 2 mm axial and 3D MIP coronal and sagittal reconstructed images were obtained. One or more of the following individualized dose reduction techniques were utilized for this study: 1. Automated exposure control. 2. Adjustment of the mA and/or kV according to patient size. 3. Use of iterative reconstruction technique. Findings: No filling defect is seen within the major branches of either pulmonary artery. There is no CT evidence of pulmonary embolism. The heart is within normal limits in size. The thoracic aorta is mildly tortuous but tapers normally. Mild scattered atherosclerotic calcification of thoracic aorta is seen. Minimal dependent subsegmental atelectasis is seen involving both lungs. No pulmonary infiltrate, pleural effusion or pneumothorax is seen. Impression: There is no CT evidence of pulmonary embolism. Electronically signed by: Josue Malik MD (05/14/2019 8:13 PM) [id number] DICTATED AND SIGNED BY: JOSUE MALIK MD DATE: 05/14/192012 CC: SG BONILLA MD; LINDSAY MORRISON MD ~ Course & Med Decision Making Course & Med Decision Making Pertinent Labs and Imaging studies reviewed. (See chart for details) Patient admitted to Dr. Roberts with cardiology consult. Heart score 4 - Hx. and presentation more consistent with chest wall atypical Impression: 1. Chest pain-appears to be chest wall or atypical 2. History of hypertension 3. History of TIAs 4. History of a cholesterol 5. History of migraines [] Dragon Disclaimer Dragon Disclaimer This electronic medical record was generated, in whole or in part, using a voice recognition dictation system. Departure Departure: Disposition: 01 HOME/RESIDENCE PRIOR TO ADM Condition: STABLE Referrals: LINDSAY MORRISON MD (PCP) Dragon Disclaimer This chart was dictated in whole or in part using Voice Recognition software in a busy, high-work load, and often noisy Emergency Department environment. It may contain unintended and wholly unrecognized errors or omissions. SG BONILLA MD May 14, 2019 18:02
--- NOTE | 2019-05-14 18:12 | EKG ---
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
[2019-05-14] MEDS ORDERED: ASPIRIN 81 MG TAB.CHEW PO ONE (18:15)
[2019-05-14 18:31] LABS: BASO # 0.1 x10^3/uL (0.0-0.2); BASO % 1 % (0-3); EOS # 0.1 x10^3/uL (0.0-0.7); EOS % 2 % (0-3); GFR 69.4; HEMATOCRIT 44.2 % (36.0-47.0); HEMOGLOBIN 14.5 g/dL (12.0-15.5); LYMPH % 22 % (24-48); MEAN CORPUSCULAR HEMOGLOBIN 30 pg (25-35); MEAN CORPUSCULAR HGB CONC 33 g/dL (31-37); MEAN CORPUSCULAR VOLUME 92 fL (79-100); MONO # 0.9 x10^3/uL (0.0-1.1); MONO % 10 % (0-9); NEUT # 6.3 x10^3uL (1.8-7.7); NEUT % 66 % (31-73); PLATELET COUNT 229 x10^3/uL (140-400); POTASSIUM 3.6 mmol/L (3.5-5.1); RED BLOOD COUNT 4.82 x10^6/uL (3.50-5.40); RED CELL DISTRIBUTION WIDTH 13.5 % (11.5-14.5); WHITE BLOOD COUNT 9.5 x10^3/uL (4.0-11.0)
[2019-05-14 18:43] LABS: ALBUMIN 3.3 g/dL (3.4-5.0); DIRECT BILIRUBIN 0.1 mg/dL (0.0-0.2); TOTAL BILIRUBIN 0.2 mg/dL (0.2-1.0); TOTAL PROTEIN 7.5 g/dL (6.4-8.2)
[2019-05-14] MEDS ORDERED: KETOROLAC 30 MG/ML VIAL. IVP ONE (19:15)
[2019-05-14] MEDS ORDERED: IOHEXOL 350 MG/ML 100 ML VIAL. IV ONE (19:15)
[2019-05-14 19:31] LABS: BACTERIA,URINE FEW /HPF (0-FEW); BARBITURATES POS (NEG); BENZODIAZEPINES NEG (NEG); BILIRUBIN,URINE NEG (NEG); CANNABINOIDS NEG (NEG); CLARITY,URINE HAZY; COCAINE NEG (NEG); COLOR,URINE YELLOW; GLUCOSE,URINE NEG (NEG); METHADONE NEG (NEG); NITRITE,URINE NEG (NEG); OPIATES NEG (NEG); PHENCYCLIDINE NEG (NEG); RBC,URINE OCC /HPF (0-2); SQUAMOUS EPITHELIAL CELL,UR MANY /LPF; UROBILINOGEN,URINE 0.2 mg/dL (0.2 mg/dL)
[2019-05-14 19:33] LABS: AMPHETAMINE/METHAMPHETAMINE NEG (NEG); U PREG PATIENT NEGATIVE (NEG)
--- NOTE | 2019-05-14 20:16 | RAD ---
CTA scan of the Chest with Contrast (Pulmonary Embolism protocol) 05/14/2019 Clinical History: Left-sided chest pain. Technique: After the intravenous administration of 100 cc of Omnipaque 350, contiguous, 0.625 mm axial sections were obtained through the chest. 2 mm axial and 3D MIP coronal and sagittal reconstructed images were obtained. One or more of the following individualized dose reduction techniques were utilized for this study: 1. Automated exposure control. 2. Adjustment of the mA and/or kV according to patient size. 3. Use of iterative reconstruction technique. Findings: No filling defect is seen within the major branches of either pulmonary artery. There is no CT evidence of pulmonary embolism. The heart is within normal limits in size. The thoracic aorta is mildly tortuous but tapers normally. Mild scattered atherosclerotic calcification of thoracic aorta is seen. Minimal dependent subsegmental atelectasis is seen involving both lungs. No pulmonary infiltrate, pleural effusion or pneumothorax is seen. Impression: There is no CT evidence of pulmonary embolism. Electronically signed by: Josue Malik MD (05/14/2019 8:13 PM) [id number]
[2019-05-14] MEDS ORDERED: ENOXAPARIN ** NOTE DOSE ** SYRINGE SQ ONE (20:30)
[2019-05-14] MEDS ORDERED: ONDANSETRON PF 4 MG/2 ML VIAL. IV PRN (20:45)
[2019-05-14] MEDS ORDERED: ACETAMINOPHEN 325 MG TABLET PO PRN (20:45)
--- NOTE | 2019-05-14 22:18 | NUR ---
The patient, CHRISTY GANDHI, 54 y/o, F admitted by CAROLINA JACKSON MD, was given written information regarding hospital policies, unit procedures and contact persons. Valuables were checked and logged. Call light in reach. Will continue to monitor.
[2019-05-14 22:20] VITALS: BP 159/91
[2019-05-14] MEDS ORDERED: BUTA1CAP27 PO (23:03)
[2019-05-14] MEDS ORDERED: CITA20TA9 PO (23:03)
[2019-05-14] MEDS ORDERED: LOSA100T14 PO (23:03)
[2019-05-14] MEDS ORDERED: BUTALB/APAP/CAFEIN 50/325/40MG TABLET. PO PRN (23:15)
[2019-05-14] MEDS ORDERED: ATORVASTATIN CALCIUM 20 MG TABLET PO SCH (23:30)
[2019-05-14] MEDS ORDERED: NAPROXEN 500 MG TABLET PO PRN (23:30)
[2019-05-14] MEDS ORDERED: CITALOPRAM 20 MG TABLET. PO PRN (23:30)
[2019-05-14] MEDS ORDERED: traMADol 50 MG TABLET PO PRN (23:30)
[2019-05-14] MEDS ORDERED: traZODone 50 MG TABLET. PO PRN (23:30)
[2019-05-14] MEDS ORDERED: NORTRIPTYLINE 10 MG CAPSULE PO ONE (23:30)
--- NOTE | 2019-05-15 02:13 | NUR ---
pt has been asymptomatic through the night. pt is resting quietly in bed.
[2019-05-15 03:00] VITALS: BP 126/73
[2019-05-15 06:26] LABS: BASO # 0.1 x10^3/uL (0.0-0.2); BASO % 1 % (0-3); EOS # 0.1 x10^3/uL (0.0-0.7); EOS % 1 % (0-3); HEMATOCRIT 44.3 % (36.0-47.0); HEMOGLOBIN 14.8 g/dL (12.0-15.5); LYMPH # 1.7 x10^3/uL (1.0-4.8); LYMPH % 24 % (24-48); MEAN CORPUSCULAR HEMOGLOBIN 30 pg (25-35); MEAN CORPUSCULAR HGB CONC 33 g/dL (31-37); MEAN CORPUSCULAR VOLUME 90 fL (79-100); MONO # 0.7 x10^3/uL (0.0-1.1); MONO % 10 % (0-9); NEUT # 4.7 x10^3uL (1.8-7.7); NEUT % 65 % (31-73); PLATELET COUNT 188 x10^3/uL (140-400); RED CELL DISTRIBUTION WIDTH 13.4 % (11.5-14.5); WHITE BLOOD COUNT 7.3 x10^3/uL (4.0-11.0)
[2019-05-15 06:35] LABS: CALCIUM 8.7 mg/dL (8.5-10.1); CREATININE 0.9 mg/dL (0.6-1.0); GFR 78.4; POTASSIUM 3.4 mmol/L (3.5-5.1)
[2019-05-15 07:50] VITALS: BP 123/77
[2019-05-15] MEDS ORDERED: POTASSIUM CHLORIDE 20 MEQ TABLET.ER. PO SCH (08:00)
[2019-05-15] MEDS ORDERED: buPROPion XL 150 MG TAB.ER.24H PO SCH (08:00)
[2019-05-15] MEDS ORDERED: ASPIRIN 325 MG TABLET PO SCH (08:00)
[2019-05-15] MEDS ORDERED: LOSARTAN 50 MG TABLET. PO SCH (09:00)
[2019-05-15] MEDS ORDERED: KETOTIFEN FUMARATE 0.025% OPHT SOLUTION BOTTLE. OU SCH (09:00)
[2019-05-15] MEDS ORDERED: ASPIRIN 81 MG TAB.CHEW PO SCH (09:00)
[2019-05-15] MEDS ORDERED: FLUTICASONE 50MCG/NASAL SPRAY 16GM BOTTLE. NS SCH (09:00)
[2019-05-15 11:22] VITALS: BP 108/71
--- NOTE | 2019-05-15 12:10 | NUR ---
Pt sitting up in bed, eating lunch. No complaints of chest pain. Pt had headache earlier and received fioricet which provided relief. Pt pleasant; napped this morning. Cardiology in to see pt; stated pt is "good cardiac-mallory". Ultrasound refused to do caraotid and extremity exams, stating they need a different diagnosis in order to complete exam. Waiting for Dr. Roberts to round, will speak with him about ultrasound. Will continue to monitor.
[2019-05-15 12:18] LABS: THYROID STIM HORMONE (TSH) 2.433 uIU/mL (0.358-3.740)
--- NOTE | 2019-05-15 13:40 | NUR ---
Spouse in to visit pt. Pt stated she is ready to go home.
[2019-05-15 15:02] VITALS: BP 122/78
--- NOTE | 2019-05-15 15:14 | PDOC2 ---
CONSULT Date of Admission DATE: 05/15/19 TIME: 15:09 Reason for Consult: Chest pain Referring Physician: Dr. Roberts Chief Complaint Chest pain Source: Chart review, Patient Problem List Problems Medical Problems: (1) Chest pain Status: Acute History of Present Illness The patient is a 54-year-old female who was admitted last evening through the emergency room for episodes of chest discomfort. Patient pain was increased with palpation and deep inspiration. Her initial d-dimer was mildly elevated at 0.[address] scan of the chest showed no evidence of pulmonary emboli. Her EKG showed a sinus rhythm with nonspecific ST-T wave changes but no acute ischemic changes. Troponins have been normal 3. The patient's pain has largely resolved. She reports a history of hypertension, hyperlipidemia and a possible past TIA. She did have a reportedly normal stress test one year ago. She is now resting reasonably comfortably in bed. Cardiovascular: HTN, hyperipidemia, Other (possible TIA) Past Surgical History: Family History: Hypertension Smoke: No ALCOHOL: none Current Medications Current Medications Aspirin (Children'S Aspirin) 324 mg 1X ONCE PO ; Start 05/14/19 at 18:15; Stop 05/14/19 at 18:16; Status DC Lactated Ringer's 1,000 ml @ 1,000 mls/hr Q1H IV Last administered on 05/14/19at 19:15; Start 05/14/19 at 18:02; Stop 05/14/19 at 19:01; Status DC Ketorolac Tromethamine (Toradol 30mg Vial) 30 mg 1X ONCE IVP Last administered on 05/14/19at 19:24; Start 05/14/19 at 19:15; Stop 05/14/19 at 19:17; Status DC Iohexol (Omnipaque 350 Mg/ml) 100 ml 1X ONCE IV Last administered on 05/14/19at 19:42; Start 05/14/19 at 19:15; Stop 05/14/19 at 19:17; Status DC Enoxaparin Sodium (Lovenox 80mg Syringe) 80 mg 1X ONCE SQ Last administered on 05/14/19at 21:14; Start 05/14/19 at 20:30; Stop 05/14/19 at 20:36; Status DC Ondansetron HCl (Zofran) 4 mg PRN Q4HRS PRN IV NAUSEA/VOMITING; Start 05/14/19 at 20:45; Stop 05/15/19 at 20:44 Acetaminophen (Tylenol) 650 mg PRN Q4HRS PRN PO FEVER; Start 05/14/19 at 20:45; Stop 05/15/19 at 20:44 Aspirin (Children'S Aspirin) 81 mg DAILY PO ; Start 05/15/19 at 09:00; Stop 05/15/19 at 07:30; Status DC Aspirin (Jaswant Aspirin) 325 mg DAILYWBKFT PO Last administered on 05/15/19at 07:26; Start 05/15/19 at 08:00 Bupropion HCl (Wellbutrin Xl) 150 mg DAILYWBKFT PO Last administered on 05/15/19at 09:14; Start 05/15/19 at 08:00 Citalopram Hydrobromide (CeleXA) 20 mg PRN QHS PRN PO depression Last administered on 05/14/19at 23:41; Start 05/14/19 at 23:30; Stop 05/14/19 at 23:44; Status DC Fluticasone Propionate (Flonase) 1 spray DAILY NS ; Start 05/15/19 at 09:00 Naproxen (Naprosyn) 500 mg PRN BID PRN PO MILD PAIN 1-3; Start 05/14/19 at 23:30 Nortriptyline HCl (Pamelor) 10 mg QHS PO ; Start 05/15/19 at 21:00 Potassium Chloride (Klor-Con) 20 meq DAILYWBKFT PO Last administered on 05/15/19at 07:26; Start 05/15/19 at 08:00 Tramadol HCl (Ultram) 50 mg PRN Q6HRS PRN PO MOD-SEVERE PAIN; Start 05/14/19 at 23:30 Trazodone HCl (Desyrel) 50 mg PRN QHS PRN PO insomnia; Start 05/14/19 at 23:30 Acetaminophen/ Butalbital/ Caffeine (Fioricet) 1 tab PRN TID PRN PO MIGRAINE HEADACHE Last administered on 05/15/19at 07:25; Start 05/14/19 at 23:15 Losartan Potassium (Cozaar) 100 mg DAILY PO Last administered on 05/15/19at 09:14; Start 05/15/19 at 09:00 Ketotifen Fumarate (Zaditor) 1 drop DAILY OU ; Start 05/15/19 at 09:00 Atorvastatin Calcium (Lipitor) 80 mg HS PO Last administered on 05/14/19at 23:41; Start 05/14/19 at 23:30 Nortriptyline HCl (Pamelor) 10 mg 1X ONCE PO Last administered on 05/14/19at 23:41; Start 05/14/19 at 23:30; Stop 05/14/19 at 23:31; Status DC Citalopram Hydrobromide (CeleXA) 20 mg QHS PO ; Start 05/15/19 at 21:00 Active Scripts Active Reported Losartan Potassium 100 Mg Tablet 100 Mg PO DAILY Hyepwuax-Owmahmcojuhwf-Wnvz Cp (Butalb/Acetaminophen/Caffeine) 1 Each Capsule 1 Each PO TID PRN Celexa (Citalopram Hydrobromide) 20 Mg Tablet 20 Mg PO QHS Trazodone Hcl 50 Mg Tablet 1 Tab PO QHS PRN Tramadol Hcl (Tramadol HCl) 50 Mg Tablet 50 Mg PO PRN Q6HRS PRN Klor-Con M20 (Potassium Chloride) 20 Meq Tab.er.prt 1 Tab PO DAILY Pataday (Olopatadine Hcl) 2.5 Ml Drops 1 Drop EACHEYE DAILY Nortriptyline Hcl 10 Mg Capsule 1 Cap PO QHS Naproxen 500 Mg Tablet 1 Tab PO BID PRN Fluticasone Propionate Nasal [place] (Fluticasone Propionate) 16 Gm [place].susp 1 Spr NS DAILY Bupropion Xl (Bupropion Hcl) 150 Mg Tab.er.24h 1 Tab PO DAILYWBKFT Aspirin 325 Mg Tablet 1 Tab PO DAILY Crestor (Rosuvastatin Calcium) 20 Mg Tablet 20 Mg PO HS Allergies: Coded Allergies: No Known Drug Allergies (Unverified , 12/13/14) General: YES: Fatigue Respiratory: YES: Pleuritic Pain Cardiovascular: yes: Chest Pain General: mild distress HEENT: Atraumatic Lungs: Clear to auscultation Heart: Regular rate Abdomen: Normal bowel sounds VITALS Vital Signs Date Time Temp Pulse Resp B/P (MAP) Pulse Ox O2 Delivery O2 Flow Rate FiO2 05/15/19 15:02 70 16 122/78 (93) Room Air 05/15/19 07:50 97.8 05/15/19 03:00 95 Labs Laboratory Tests Test 05/14/19 18:06 05/14/19 19:10 05/15/19 00:30 05/15/19 06:20 White Blood Count 9.5 x10^3/uL (4.0-11.0) 7.3 x10^3/uL (4.0-11.0) Red Blood Count 4.82 x10^6/uL (3.50-5.40) 4.90 x10^6/uL (3.50-5.40) Hemoglobin 14.5 g/dL (12.0-15.5) 14.8 g/dL (12.0-15.5) Hematocrit 44.2 % (36.0-47.0) 44.3 % (36.0-47.0) Mean Corpuscular Volume 92 fL (79-100) 90 fL (79-100) Mean Corpuscular Hemoglobin 30 pg (25-35) 30 pg (25-35) Mean Corpuscular Hemoglobin Concent 33 g/dL (31-37) 33 g/dL (31-37) Red Cell Distribution Width 13.5 % (11.5-14.5) 13.4 % (11.5-14.5) Platelet Count 229 x10^3/uL (140-400) 188 x10^3/uL (140-400) Neutrophils (%) (Auto) 66 % (31-73) 65 % (31-73) Lymphocytes (%) (Auto) 22 % (24-48) 24 % (24-48) Monocytes (%) (Auto) 10 % (0-9) 10 % (0-9) Eosinophils (%) (Auto) 2 % (0-3) 1 % (0-3) Basophils (%) (Auto) 1 % (0-3) 1 % (0-3) Neutrophils # (Auto) 6.3 x10^3uL (1.8-7.7) 4.7 x10^3uL (1.8-7.7) Lymphocytes # (Auto) 2.0 x10^3/uL (1.0-4.8) 1.7 x10^3/uL (1.0-4.8) Monocytes # (Auto) 0.9 x10^3/uL (0.0-1.1) 0.7 x10^3/uL (0.0-1.1) Eosinophils # (Auto) 0.1 x10^3/uL (0.0-0.7) 0.1 x10^3/uL (0.0-0.7) Basophils # (Auto) 0.1 x10^3/uL (0.0-0.2) 0.1 x10^3/uL (0.0-0.2) Prothrombin Time 10.0 SEC (9.4-11.4) Prothromb Time International Ratio 1.0 (0.9-1.1) Activated Partial Thromboplast Time 26 SEC (23-33) D-Dimer (Tricia) 0.51 mg/L (0.00-0.50) Sodium Level 144 mmol/L (136-145) 142 mmol/L (136-145) Potassium Level 3.6 mmol/L (3.5-5.1) 3.4 mmol/L (3.5-5.1) Chloride Level 104 mmol/L (98-107) 104 mmol/L (98-107) Carbon Dioxide Level 32 mmol/L (21-32) 32 mmol/L (21-32) Anion Gap 8 (6-14) 6 (6-14) Blood Urea Nitrogen 18 mg/dL (7-20) 12 mg/dL (7-20) Creatinine 1.0 mg/dL (0.6-1.0) 0.9 mg/dL (0.6-1.0) Estimated GFR (Cockcroft-Gault) 69.4 78.4 Glucose Level 90 mg/dL (70-99) 107 mg/dL (70-99) Calcium Level 9.0 mg/dL (8.5-10.1) 8.7 mg/dL (8.5-10.1) Magnesium Level 2.0 mg/dL (1.8-2.4) Total Bilirubin 0.2 mg/dL (0.2-1.0) Direct Bilirubin 0.1 mg/dL (0.0-0.2) Aspartate Amino Transf (AST/SGOT) 22 U/L (15-37) Alanine Aminotransferase (ALT/SGPT) 37 U/L (14-59) Alkaline Phosphatase 112 U/L (46-116) Creatine Kinase 262 U/L (26-192) Troponin I Quantitative < 0.017 ng/mL (0-0.055) < 0.017 ng/mL (0-0.055) < 0.017 ng/mL (0-0.055) KW-Ngi-Y-Type Natriuretic Peptide 146 pg/mL (0-124) Total Protein 7.5 g/dL (6.4-8.2) Albumin 3.3 g/dL (3.4-5.0) Triglycerides Level 105 mg/dL (0-150) Cholesterol Level 153 mg/dL (0-200) LDL Cholesterol, Calculated 85 mg/dL (0-100) VLDL Cholesterol, Calculated 21 mg/dL (0-40) Non-HDL Cholesterol Calculated 106 mg/dL (0-129) HDL Cholesterol 47 mg/dL (40-60) Cholesterol/HDL Ratio 3.0 Lipase 119 U/L (73-393) Thyroid Stimulating Hormone (TSH) 2.433 uIU/mL (0.358-3.740) Urine Collection Type Unknown Urine Color Yellow Urine Clarity Hazy Urine pH 5.5 Urine Specific [place] 1.025 Urine Protein Neg (NEG-TRACE) Urine Glucose (UA) Neg mg/dL (NEG) Urine Ketones (Stick) Neg mg/dL (NEG) Urine Blood Neg (NEG) Urine Nitrite Neg (NEG) Urine Bilirubin Neg (NEG) Urine Urobilinogen Dipstick 0.2 mg/dL (0.2 mg/dL) Urine Leukocyte Esterase Trace (NEG) Urine RBC Occ /HPF (0-2) Urine WBC 5-10 /HPF (0-4) Urine Squamous Epithelial Cells Many /LPF Urine Bacteria Few /HPF (0-FEW) Urine Mucus Mod /LPF Urine Test Negative (NEG) Urine Opiates Screen Neg (NEG) Urine Methadone Screen Neg (NEG) Urine Barbiturates Pos (NEG) Urine Phencyclidine Screen Neg (NEG) Urine Amphetamine/Methamphetamine Neg (NEG) Urine Benzodiazepines Screen Neg (NEG) Urine Cocaine Screen Neg (NEG) Urine Cannabinoids Screen Neg (NEG) Urine Ethyl Alcohol Neg (NEG) Images CT angiogram of the chest with no evidence of pulmonary emboli. Assessment/Plan 1. Chest pain. Atypical. Now resolved. Troponin 3 is normal. EKG shows no acute ischemic changes. Patient had a reportedly normal stress test one year ago. With continue present medications increase activities. Possibly home later today with follow-up through her primary physician. 2. Hypertension. Resume home medications. 3. Possible hyperlipidemia. Continue present treatments. 4. Reported history of a TIA. Clinically stable. Thank you for allowing us to participate in the care of your patient. BRANDY KESSLER MD May 15, 2019 15:14
--- NOTE | 2019-05-15 16:45 | NUR ---
Dr. Roberts in to see pt. Pt discharged to home. Instructions given. Pt stated understanding.
--- NOTE | 2019-05-15 18:12 | SSS ---
ADMIT DATE: 05/15/2019 HISTORY OF PRESENT ILLNESS: The patient is a 54-year-old -[place] Citizen female patient who came to the Emergency Room with complaint of chest pain. Chest pain has chest wall component, increased pain with movement and deep breaths. Pain started in the back and came around under her left breast. She stated the pain was about of 8/10 in severity. Denied any previous cardiac issues. The patient did have a stress test approximately a year ago with no significant finding at that time. She denied any recent history of injury or respiratory infection. She is known to have multiple medical problems and her father did a pacemaker at the age of 50, but he is still alive. Mother has no cardiac issues and she has 3 brothers and 2 sisters they are relatively healthy. She was evaluated in the Emergency Room and her first set of cardiac enzymes showed that her troponin was less than 0.017. Her EKG showed sinus rhythm at a rate of 84 beats per minute with nonspecific ST changes, but no finding of acute ST segment elevation myocardial infarction. She was admitted and has had 2 more sets of cardiac enzymes that ruled out acute myocardial infarction. She was seen in consultation by the microfilm clerk, who recommended that the patient can be safely discharged with negative troponin and EKG shows no acute ischemic changes and reportedly normal stress test about a year ago and to follow with her primary care physician. PAST MEDICAL HISTORY: Significant for hypertension, hyperlipidemia, possible transient ischemic attack. PAST SURGICAL HISTORY: Significant for . FAMILY HISTORY: Positive for hypertension. Her father also required pacemaker. 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 She does not smoke, drink alcohol or use any recreational drugs. ALLERGIES: She has no known drug allergies. MEDICATIONS: She is currently on following medications: She is on Crestor 20 mg at bedtime, losartan potassium 100 mg daily, aspirin 325 mg once a day. She is on naproxen 500 mg twice a day, tramadol 50 mg every 6 hours. She is on Fioricet 1 tablet 3 times a day as needed for migraine headache. She is on Wellbutrin 150 mg once a day, citalopram hydrobromide 20 mg at bedtime, nortriptyline 10 mg at bedtime, trazodone 50 mg at bedtime. She is on potassium chloride 20 mEq once a day and Pataday 1 drop to both eyes daily. She is on Flonase 1 spray to each nostril twice a day. REVIEW OF SYSTEMS: As per history of present illness. PHYSICAL EXAMINATION: GENERAL: On arrival to the Emergency Room, she looked well and was clearly in no apparent respiratory distress. No pallor, jaundice, cyanosis or thyromegaly. No jugular venous distention. No limb edema. VITAL SIGNS: Her heart rate was 88, blood pressure was 143/84, temperature was 97.9, respiratory rate 20, and oxygen saturation 100% on room air. HEAD, EYES, EARS, NOSE AND THROAT: Showed normocephalic, atraumatic. NECK: Supple. CARDIAC: Normal first and second heart sounds. No gallop or murmur. CHEST: Clear to auscultation. No crepitation or rhonchi. ABDOMEN: Slightly distended, soft, nontender. NEUROLOGIC: She is grossly intact. LABORATORY DATA: Her lab work on arrival showed a white cell count of 9500, hemoglobin 14.5, hematocrit 44, MCV 92, and platelet count of 229,000. Her chemistry showed a serum sodium 144, potassium 3.6, chloride 104, bicarbonate 32, anion gap of 8, BUN 18, creatinine 1, estimated GFR was 69 mL per minute. Her glucose was 90, calcium was 9, magnesium 2. Total bilirubin, AST, ALT, alkaline phosphatase were normal. Total protein was 7.5, albumin 3.3. Lipase was 119. Her prothrombin time, INR and aPTT normal. D-dimer was 0.51. Urinalysis was unremarkable. test was negative. Toxic screen was positive for barbiturates, negative for all other medication. Her CT angio of the chest showed no filling defect is seen within the major branches of either pulmonary artery. There is no CT evidence of pulmonary embolism. The heart is within normal limits in size. Thoracic aorta is mildly tortuous, but tapers normally. Mild scattered atherosclerotic calcification of thoracic aorta is seen. Minimal dependent subsegmental atelectasis seen involving both lungs. No pulmonary infiltrate, pleural effusion, or pneumothorax. As the patient has ruled out for acute myocardial infarction, the patient was discharged home to continue on her current medication and she was discharged to continue on her citalopram hydrobromide 20 mg at bedtime, nortriptyline 10 mg at bedtime, ketotifen fumarate for Zaditor 1 drop to both eyes once a day, losartan potassium 100 mg once a day, Flonase 1 spray to each nostril twice a day, potassium chloride 20 mEq daily, Wellbutrin 150 mg once a day, aspirin 325 mg once a day, atorvastatin calcium 80 mg at bedtime, trazodone 50 mg at bedtime, tramadol 50 mg every 6 hours, naproxen 500 mg twice a day, Fioricet 1 tablet 3 times a day as needed, acetaminophen 650 mg every 4 hours. FINAL DISCHARGE DIAGNOSES: 1. Chest pain, atypical, with normal cardiac enzymes and EKG that shows no acute ischemic changes. 2. Hypertension. 3. Hyperlipidemia, possible history of transient ischemic attack. CAROLINA JACKSON MD DR: HORACIO/fiona JOB#: [id number] / [id number]
[2019-05-15] MEDS ORDERED: NORTRIPTYLINE 10 MG CAPSULE PO SCH (21:00)
[2019-05-15] MEDS ORDERED: CITALOPRAM 20 MG TABLET. PO SCH (21:00)
== END 2019-05-15 17:18 | disposition home or self-care (01) | DRG 392 ==
LOC: ER 17:57 → ICU 20:30
PROVIDERS: ADMIT Internal Medicine; ATTEND Internal Medicine
DX: K21.9 Gastro-esophageal reflux disease without esophagitis (principal); I10 Essential (primary) hypertension; E78.00 Pure hypercholesterolemia, unspecified; E78.5 Hyperlipidemia, unspecified; G43.909 Migraine, unspecified, not intractable, without status migrainosus; F32.9 Major depressive disorder, single episode, unspecified; Z82.49 Family history of ischemic heart disease and other diseases of the circulatory system; Z86.73 Personal history of transient ischemic attack (TIA), and cerebral infarction without residual deficits
CPT/HCPCS: 36415; 71275; 80048; 80061; 80076; 80307; 81001; 81025; 82550; 83690; 83735; 83880; 84443; 84484; 85025; 85379; 85610; 85730; 87086; 93005; 96365; 96368; 99285; J1650; J1885; J7120; Q9967

== ENCOUNTER 2019-11-20 20:01 | Emergency (ER) | payer OTHER ==
[~2019-11-20] VITALS: Ht 157.5 cm; Wt 84.2 kg
[~2019-11-20 20:01] MED LIST changes: +BUTA1CAP27 PO; +CITA20TA9 PO; +LOSA100T14 PO; -OLOP2.5D EACHEYE; +OLOP2.5D12 EACHEYE
[2019-11-20 20:13] VITALS: BP 162/94
[2019-11-20] MEDS ORDERED: KETOROLAC 15 MG/ML VIAL. IVP ONE (20:30)
[2019-11-20] MEDS ORDERED: IV NORMAL SALINE 1,000ML 1,000 ML IV ONE (20:30)
[2019-11-20] MEDS ORDERED: METOCLOPRAMIDE HCL 10 MG/2 ML VIAL. IVP ONE (20:30)
--- NOTE | 2019-11-20 21:34 | RAD ---
CT ABDOMEN PELVIS WO CONTRAST INDICATION: LLQ abdominal eval for ureteral calculi / Spl. Instructions: / History: EXAM: Noncontrast CT of the abdomen and pelvis. Coronal and sagittal reformatted images were performed. PQRS compliance statement: One or more of the following individualized dose reduction techniques were utilized for this examination: 1. Automated exposure control 2. Adjustment of the mA and/or kV according to patient size 3. Use of iterative reconstruction technique COMPARISON: 09/14/2017 FINDINGS: No free air, free fluid, or fluid collection. Lower chest: The visualized lower lungs are aerated. No pleural or pericardial effusion. ABDOMEN: Liver: The noncontrast liver is homogeneous in attenuation. Gallbladder and biliary: Normal gallbladder without radiopaque stone. Normal caliber bile ducts. Spleen: Normal spleen. Pancreas: The noncontrast pancreas is homogeneous in attenuation without peripancreatic inflammatory changes. Adrenal glands: Normal adrenal glands. Kidneys and ureters: No hydronephrosis. 5 x 3 mm calculus at the left ureterovesicular junction. GI tract: The stomach is decompressed and poorly evaluated. Normal caliber small bowel and colon. Mild wall thickening of the rectum. Normal appendix. Vascular structures: Normal caliber abdominal aorta. Lymph nodes: No lymphadenopathy in the abdomen or pelvis. PELVIS: Genitourinary system: Urinary bladder is decompressed. Uterus is present. SKELETAL STRUCTURES AND SOFT TISSUES: No fracture or destructive lesion in the visualized skeleton. IMPRESSION: 1. No hydronephrosis. 5 x 3 mm calculus at the left ureterovesicular junction. Similar calculus seen at this location on exam of 09/14/2017, which could be the same/chronic calculus or this could be new. 2. Mild wall thickening of the rectum. Correlate for symptoms of proctitis. Colonoscopy should be considered if not performed recently. Electronically signed by: Sai Srivastava MD (11/20/2019 9:31 PM) [facility]
[2019-11-20 21:41] LABS: BILIRUBIN,URINE NEG (NEG); CLARITY,URINE CLOUDY; COLOR,URINE AMBER; GLUCOSE,URINE NEG (NEG); NITRITE,URINE NEG (NEG)
[2019-11-20 21:42] LABS: BACTERIA,URINE MANY /HPF (0-FEW); RBC,URINE >40 /HPF (0-2); SQUAMOUS EPITHELIAL CELL,UR MANY /LPF
--- NOTE | 2019-11-20 21:51 | PHYS DOC ---
Past History Past Medical History: Depression, High Cholesterol, Hypertension, Migraines, TIA, Other Past Surgical History: , Other Additional Past Surgical Histo: BUNIONECTOMY, R SHOULDER, L FOREARM, R HAND Alcohol Use: Rarely Drug Use: None General Adult EDM: Chief Complaint: GROIN PAIN HPI: HPI: 54-year-old female presents emergency department for lower lower quadrant pain and suprapubic pain started 3 days ago. The pain initially began in her left lower quadrant, was associated with frequent loose stools, but No diarrhea. She describes the pain as achy and sharp with movement of the trunk or lower extremities. In the past day the pain has migrated from the left lower quadrant and more centralized in the suprapubic region. She denies any dysuria, hematuria, melena, or Hematochezia. She has a history of nephrolithiasis from 3 years ago, but she reports that this does not feel like that. She says she has had a decreased appetite in the past few days mostly because she is afraid to eat and then have to have immediate need to stool. She has had 2 previous deliveries. She has had no change in stooling or urination. Her last stool was yesterday afternoon and she states that she has had a stool basically every day for the past couple of weeks. The pain does not radiate anywhere besides suprapubic and left lower quadrant area. She has not taken pain medication to relieve the pain and the only thing that makes the pain lessened is lying down. Review of Systems: Review of Systems: Constitutional: Denies fever or chills Eyes: Denies redness or eye pain HENT: Denies nasal congestion or sore throat Respiratory: Denies cough or shortness of breath Cardiovascular: Denies chest pain or palpitations GI: Reports abdominal pain in the left lower quadrant and suprapubic region : Denies dysuria or hematuria Musculoskeletal: Denies back pain or joint pain Integument: Denies rash or skin lesions Neurologic: Denies headache, focal weakness or sensory changes Complete systems were reviewed and found to be within normal limits, except as documented in this note. Current Medications: Current Meds: Current Medications Medications (Trade) Dose Ordered Sig/Ash Start Time Stop Time Status Last Admin Dose Admin Ketorolac Tromethamine (Toradol 15mg Vial) 15 mg 1X ONCE 11/20/19 20:30 11/20/19 20:37 DC 11/20/19 21:20 15 MG Metoclopramide HCl (Reglan Vial) 10 mg 1X ONCE 11/20/19 20:30 11/20/19 20:37 DC 11/20/19 21:20 10 MG Sodium Chloride 1,000 ml @ 1,000 mls/hr 1X ONCE 11/20/19 20:30 11/20/19 21:29 DC 11/20/19 21:20 1,000 MLS/HR Allergies: Allergies: Allergies Coded Allergies Type Severity Reaction Last Updated Verified No Known Drug Allergies 12/13/14 No Physical Exam: PE: Constitutional: Well developed, well nourished, no acute distress, non-toxic appearance HENT: Normocephalic, atraumatic, oropharynx moist Eyes: PERRL, EOMI, conjunctiva normal, no discharge Neck: Normal range of motion, no tenderness, supple Lungs & Thorax: Urgent follow-up chest bilaterally is equal. No acute respiratory distress Abdomen: Soft, no suprapubic tenderness upon palpation. Mild tenderness noted on palpation in the left lower quadrant. No rebound tenderness. No CVA tenderness. Heel strike is negative. Skin: Warm, dry, no erythema, no rash Back: No tenderness, no CVA tenderness Extremities: No tenderness, ROM intact, no edema Neurologic: Alert and oriented X 3, normal motor function, normal sensory function, no focal deficits noted Psychologic: Affect normal, judgment normal Current Patient Data: Labs: Laboratory Tests Test 11/20/19 20:45 Urine Collection Type Unknown Urine Color Callie Urine Clarity Cloudy Urine pH 5.0 Urine Specific [place] >=1.030 Urine Protein 30 mg/dl (NEG-TRACE) Urine Glucose (UA) Neg mg/dL (NEG) Urine Ketones (Stick) 15 mg/dL (NEG) Urine Blood Large (NEG) Urine Nitrite Neg (NEG) Urine Bilirubin Neg (NEG) Urine Urobilinogen Dipstick 1.0 mg/dL (0.2 mg/dL) Urine Leukocyte Esterase Neg (NEG) Urine RBC >40 /HPF (0-2) Urine WBC 5-10 /HPF (0-4) Urine Squamous Epithelial Cells Many /LPF Urine Bacteria Many /HPF (0-FEW) Urine Mucus Slight /LPF Vital Signs: Vital Signs Date Time Temp Pulse Resp B/P (MAP) Pulse Ox O2 Delivery O2 Flow Rate FiO2 11/20/19 20:13 97.6 90 18 162/94 (116) 98 Room Air EKG: EKG: [] Radiology/Procedures: Radiology/Procedures: CT ABDOMEN PELVIS WO CONTRAST INDICATION: LLQ abdominal eval for ureteral calculi / Spl. Instructions: / History: EXAM: Noncontrast CT of the abdomen and pelvis. Coronal and sagittal reformatted images were performed. PQRS compliance statement: One or more of the following individualized dose reduction techniques were utilized for this examination: 1. Automated exposure control 2. Adjustment of the mA and/or kV according to patient size 3. Use of iterative reconstruction technique COMPARISON: 09/14/2017 FINDINGS: No free air, free fluid, or fluid collection. Lower chest: The visualized lower lungs are aerated. No pleural or pericardial effusion. ABDOMEN: Liver: The noncontrast liver is homogeneous in attenuation. Gallbladder and biliary: Normal gallbladder without radiopaque stone. Normal caliber bile ducts. Spleen: Normal spleen. Pancreas: The noncontrast pancreas is homogeneous in attenuation without peripancreatic inflammatory changes. Adrenal glands: Normal adrenal glands. Kidneys and ureters: No hydronephrosis. 5 x 3 mm calculus at the left ureterovesicular junction. GI tract: The stomach is decompressed and poorly evaluated. Normal caliber small bowel and colon. Mild wall thickening of the rectum. Normal appendix. Vascular structures: Normal caliber abdominal aorta. Lymph nodes: No lymphadenopathy in the abdomen or pelvis. PELVIS: Genitourinary system: Urinary bladder is decompressed. Uterus is present. SKELETAL STRUCTURES AND SOFT TISSUES: No fracture or destructive lesion in the visualized skeleton. IMPRESSION: 1. No hydronephrosis. 5 x 3 mm calculus at the left ureterovesicular junction. Similar calculus seen at this location on exam of 09/14/2017, which could be the same/chronic calculus or this could be new. 2. Mild wall thickening of the rectum. Correlate for symptoms of proctitis. Colonoscopy should be considered if not performed recently. Electronically signed by: Sai Srivastava MD (11/20/2019 9:31 PM) [facility] Course & Med Decision Making: Course & Med Decision Making 54-year-old female presented to the emergency department today for suprapubic and left lower quadrant pain that started 4 days ago. She had a history of nephrolithiasis. She had frequent urinations, but no dysuria or hematuria. She has 2 previous deliveries, but beyond that no other abdominal surgeries. We performed basic labs and obtained a CT without contrast of the abdomen which revealed a 3 mm x 5 mm stone at the utero vesicular junction on the left side. We have given analgesics, antiemetics, and Flomax for helping her pass the stone and deal with the pain and discomfort associated with this. Patient stable for discharge with outpatient follow-up with PCP. Discussed findings and plan with patient and family, who acknowledge understanding and agreement. Dontae Disclaimer: Dontae Disclaimer: This electronic medical record was generated, in whole or in part, using a voice recognition dictation system. Departure Departure: Impression: Primary Impression: Kidney stone Disposition: 01 HOME/RESIDENCE PRIOR TO ADM Condition: STABLE Referrals: NATE PHELPS (PCP) Patient Instructions: Diet for Kidney Stones, Kidney Stones, [id number] Scripts Hydrocodone Bit/Acetaminophen (NORCO 5-325 TABLET) 1 Each Tablet 0.5-1 TAB PO Q6HRS PRN for PAIN, #10 TAB Prov: HUSEYIN WATSON DO 11/20/19 Tamsulosin Hcl (FLOMAX) 0.4 Mg Cap.er.24h 1 CAP PO DAILY for Kidney stone, #7 CAP Prov: HUSEYIN WATSON DO 11/20/19 Ondansetron (ONDANSETRON ODT) 4 Mg Tab.rapdis 1 TAB PO PRN Q6-8HRS PRN for NAUSEA, #16 TAB Prov: HSUEYIN WATSON DO 11/20/19 Justification of Admission: Justification of Admission: Justification of Admission Dx: N/A HUSEYIN WATSON DO Nov 20, 2019 21:51
[2019-11-20 21:52] LABS: BASO # 0.1 x10^3/uL (0.0-0.2); BASO % 1 % (0-3); EOS # 0.1 x10^3/uL (0.0-0.7); EOS % 1 % (0-3); HEMATOCRIT 50.3 % (36.0-47.0); HEMOGLOBIN 16.9 g/dL (12.0-15.5); LYMPH # 1.7 x10^3/uL (1.0-4.8); LYMPH % 19 % (24-48); MEAN CORPUSCULAR HEMOGLOBIN 31 pg (25-35); MEAN CORPUSCULAR HGB CONC 34 g/dL (31-37); MEAN CORPUSCULAR VOLUME 91 fL (79-100); MONO # 0.9 x10^3/uL (0.0-1.1); MONO % 10 % (0-9); NEUT # 6.2 x10^3uL (1.8-7.7); NEUT % 69 % (31-73); PLATELET COUNT 243 x10^3/uL (140-400); RED BLOOD COUNT 5.51 x10^6/uL (3.50-5.40); RED CELL DISTRIBUTION WIDTH 12.7 % (11.5-14.5)
[2019-11-20 22:00] LABS: CALCIUM 9.9 mg/dL (8.5-10.1); CREATININE 1.1 mg/dL (0.6-1.0); GFR 62.2; POTASSIUM 3.4 mmol/L (3.5-5.1)
[2019-11-20] MEDS ORDERED: ONDA4TAB12 PO (22:02)
[2019-11-20] MEDS ORDERED: HYDR-3165 PO (22:02)
[2019-11-20] MEDS ORDERED: TAMS0.4C97 PO (22:02)
[2019-11-20 22:06] LABS: ALBUMIN 4.1 g/dL (3.4-5.0); ALBUMIN/GLOBULIN RATIO 0.8 (1.0-1.7); MAGNESIUM 2.1 mg/dL (1.8-2.4); TOTAL BILIRUBIN 0.8 mg/dL (0.2-1.0)
[2019-11-20] MEDS ORDERED: TAMSULOSIN 0.4 MG CAP.ER.24H. PO ONE (22:30)
== END 2019-11-20 22:30 | disposition home or self-care (01) ==
LOC: ER 20:01
DX: N20.0 Calculus of kidney (principal); E78.00 Pure hypercholesterolemia, unspecified; I10 Essential (primary) hypertension; G43.909 Migraine, unspecified, not intractable, without status migrainosus; Z86.73 Personal history of transient ischemic attack (TIA), and cerebral infarction without residual deficits; Z98.890 Other specified postprocedural states
CPT/HCPCS: 36415; 74176; 80053; 81001; 83690; 83735; 85025; 87086; 96361; 96374; 96375; 99284; J1885; J2765; J7030